=== PATIENT | female | born 1980 | race Caucasian/White ===

== ENCOUNTER 2017-07-10 12:30 | Emergency (ER) | payer BC ==
[~2017-07-10] VITALS: Ht 165.1 cm; Wt 68.0 kg
[2017-07-10 15:12] VITALS: BP 120/84
== END 2017-07-10 15:12 | disposition home or self-care (01) ==
LOC: ED 12:30
DX: R56.9 Unspecified convulsions (principal); Z88.8 Allergy status to other drugs, medicaments and biological substances